=== PATIENT | male | born 1985 | race Caucasian/White ===

== ENCOUNTER 2021-07-23 09:26 | Outpatient (CLI) | payer OTHER, SELFPAY ==
[2021-07-23 09:41] LABS: Basophils Absolute Auto 0.1 K/mm3 (0.0-0.1); Basophils Percent Auto 0.9 % (0.2-1.2); Eosinophils Absolute Auto 0.4 K/mm3 (0-0.3); Eosinophils Percent Auto 4.9 % (0-4.4); Hematocrit 47.8 % (42.0-52.0); Hemoglobin 15.4 g/dL (14.0-18.0); Immature Granulocyte Absolute 0.02 K/mm3 (0.00-0.031); Immature Granulocyte Percent A 0.3 % (0-0.5); Lymphocytes Absolute Auto 1.78 K/mm3 (0.9-3.2); Lymphocytes Percent Auto 23.1 % (18.3-44.2); Mean Corpuscular HGB Conc 32.2 g/dl (32-36); Mean Corpuscular Hemoglobin 28.6 pg (26-34); Mean Corpuscular Volume 88.8 fl (80-100); Mean Platelet Volume 10.8 fl (7.4-10.4); Monocytes Absolute Auto 0.8 K/mm3 (0.1-0.6); Monocytes Percent Auto 10.2 % (2.6-8.5); Neutrophils Absolute Auto 4.7 K/mm3 (1.3-6.7); Neutrophils Percent Auto 60.6 % (45.5-73.1); Platelet Count Result 269 k/mm3 (150-375); Red Blood Count 5.38 M/mm3 (4.6-6.20); Red Cell Distribution Width 13.2 % (11.5-14.5); White Blood Count 7.7 K/mm3 (4.5-10.0)
[2021-07-23 09:59] LABS: Alanine Aminotransferase 97 U/L (4-50); Albumin Level 4.6 g/dL (3.5-5.1); Alkaline Phosphatase 91 U/L (38-126); Anion Gap 9 mmol/L (8-16); Aspartate Amino Transferase 43 U/L (17-59); Bilirubin,Total 0.4 mg/dL (0.2-1.3); Blood Urea Nitrogen 11 mg/dL (9-20); Calcium 9.4 mg/dL (8.4-10.2); Carbon Dioxide 30 mmol/L (22-30); Chloride 96 mmol/L (98-107); Cholesterol 220 mg/dL (0-200); Estimated Glomerular Filt Rate > 60; Glucose 136 mg/dL (65-110); HDL Direct 35 mg/dL; Potassium 3.7 mmol/L (3.4-5.0); Sodium 135 mmol/L (137-145); Triglycerides 126 mg/dL (<150)
[2021-07-23 10:10] LABS: LDL Cholesterol Direct 141 mg/dL
[2021-07-23 12:25] LABS: Hemoglobin A1C 7.4 % (<5.7)
== END 2021-07-23 09:27 | disposition home or self-care (01) ==
PROVIDERS: PCP Family Medicine; Visit Provider Physician Assistant
DX: I10 Essential (primary) hypertension (principal); R73.01 Impaired fasting glucose; Z13.220 Encounter for screening for lipoid disorders
CPT/HCPCS: 36415; 80053; 80061; 83036; 84443; 85025

== ENCOUNTER 2021-08-20 13:32 | Outpatient (CLI) | payer OTHER, SELFPAY ==
[2021-08-20 14:09] LABS: Alanine Aminotransferase 94 U/L (4-50); Aspartate Amino Transferase 48 U/L (17-59)
== END 2021-08-20 13:33 | disposition home or self-care (01) ==
LOC: ANHLAB 13:36
PROVIDERS: PCP Family Medicine; Visit Provider Physician Assistant
DX: R74.8 Abnormal levels of other serum enzymes (principal)
CPT/HCPCS: 36415; 84450; 84460

== ENCOUNTER 2021-09-12 10:57 | Outpatient (CLI) | payer OTHER, SELFPAY ==
--- NOTE | ~2021-09-12 | US_ITS ---
US right upper quadrant INDICATION: Abnormal lab tests. PROCEDURE: Realtime right upper abdominal ultrasound. COMPARISON: No prior studies for comparison. FINDINGS: The pancreas is normal without focal mass or pancreatic ductal dilation. Liver echotexture is increased, consistent with fatty infiltration. There is normal directional flow in the portal ve in. There is a gallstone. No gallbladder wall thickening or pericholecystic fluid. Common bile duct radha ures 3.5 mm. No sonographic Drake's sign. IMPRESSION: 1: Cholelithiasis. 2: Hepatic steatosis. Reviewed, dictated and finalized at location B.
== END 2021-09-12 10:58 | disposition home or self-care (01) ==
PROVIDERS: PCP Family Medicine; Visit Provider Physician Assistant
DX: R74.8 Abnormal levels of other serum enzymes (principal); K80.20 Calculus of gallbladder without cholecystitis without obstruction; K76.0 Fatty (change of) liver, not elsewhere classified
CPT/HCPCS: 76705

== ENCOUNTER → 2021-11-16 00:55 | Outpatient (CLI) | payer OTHER, SELFPAY ==
[2021-11-16 19:18] LABS: SARS-CoV-2 RNA PCR Negative
== END ==
PROVIDERS: Nurse Practitioner Gerontology; PCP Family Medicine; Visit Provider Family Medicine
DX: Z20.822 Contact with and (suspected) exposure to COVID-19 (principal)
CPT/HCPCS: C9803; U0003; U0005

== ENCOUNTER 2022-03-06 08:42 | Outpatient (CLI) | payer OTHER, SELFPAY ==
[2022-03-06 09:05] LABS: Basophils Absolute Auto 0.1 K/mm3 (0.0-0.1); Basophils Percent Auto 0.9 % (0.2-1.2); Eosinophils Absolute Auto 0.4 K/mm3 (0-0.3); Eosinophils Percent Auto 5.9 % (0-4.4); Hematocrit 46.7 % (42.0-52.0); Immature Granulocyte Absolute 0.02 K/mm3 (0.00-0.031); Immature Granulocyte Percent A 0.3 % (0-0.5); Lymphocytes Absolute Auto 1.95 K/mm3 (0.9-3.2); Lymphocytes Percent Auto 26.1 % (18.3-44.2); Mean Corpuscular HGB Conc 32.1 g/dl (32-36); Mean Corpuscular Hemoglobin 29.4 pg (26-34); Mean Corpuscular Volume 91.6 fl (80-100); Mean Platelet Volume 10.8 fl (7.4-10.4); Monocytes Absolute Auto 0.7 K/mm3 (0.1-0.6); Monocytes Percent Auto 8.8 % (2.6-8.5); Neutrophils Absolute Auto 4.3 K/mm3 (1.3-6.7); Platelet Count Result 293 k/mm3 (150-375); Red Cell Distribution Width 12.5 % (11.5-14.5); White Blood Count 7.5 K/mm3 (4.5-10.0)
[2022-03-06 09:13] LABS: Alanine Aminotransferase 104 U/L (4-50); Albumin Level 4.5 g/dL (3.5-5.1); Alkaline Phosphatase 82 U/L (38-126); Anion Gap 6 mmol/L (8-16); Aspartate Amino Transferase 50 U/L (17-59); Bilirubin,Total 0.6 mg/dL (0.2-1.3); Blood Urea Nitrogen 16 mg/dL (9-20); Calcium 8.9 mg/dL (8.4-10.2); Carbon Dioxide 33 mmol/L (22-30); Chloride 99 mmol/L (98-107); Cholesterol 201 mg/dL (0-200); Estimated Glomerular Filt Rate > 60; Glucose 92 mg/dL (65-110); HDL Direct 34 mg/dL; Potassium 3.7 mmol/L (3.4-5.0); Sodium 138 mmol/L (137-145); Triglycerides 139 mg/dL (<150)
[2022-03-06 09:24] LABS: LDL Cholesterol Direct 112 mg/dL
[2022-03-06 10:14] LABS: Hemoglobin A1C 5.1 % (<5.7)
== END 2022-03-06 08:43 | disposition home or self-care (01) ==
LOC: ANHLAB 08:43
PROVIDERS: PCP Family Medicine; Visit Provider Nurse Practitioner Gerontology
DX: E11.9 Type 2 diabetes mellitus without complications (principal); E78.2 Mixed hyperlipidemia; I10 Essential (primary) hypertension
CPT/HCPCS: 36415; 80053; 80061; 83036; 85025

== ENCOUNTER 2022-06-18 07:46 | Outpatient (CLI) | payer OTHER, SELFPAY ==
[2022-06-18 07:57] LABS: Basophils Absolute Auto 0.1 K/mm3 (0.0-0.1); Basophils Percent Auto 0.8 % (0.2-1.2); Eosinophils Absolute Auto 0.4 K/mm3 (0-0.3); Eosinophils Percent Auto 6.1 % (0-4.4); Hematocrit 45.2 % (42.0-52.0); Hemoglobin 14.6 g/dL (14.0-18.0); Immature Granulocyte Absolute 0.01 K/mm3 (0.00-0.031); Immature Granulocyte Percent A 0.1 % (0-0.5); Lymphocytes Absolute Auto 1.86 K/mm3 (0.9-3.2); Lymphocytes Percent Auto 25.7 % (18.3-44.2); Mean Corpuscular HGB Conc 32.3 g/dl (32-36); Mean Corpuscular Hemoglobin 29.4 pg (26-34); Mean Corpuscular Volume 90.9 fl (80-100); Mean Platelet Volume 10.3 fl (7.4-10.4); Monocytes Absolute Auto 0.6 K/mm3 (0.1-0.6); Monocytes Percent Auto 8.8 % (2.6-8.5); Neutrophils Absolute Auto 4.2 K/mm3 (1.3-6.7); Neutrophils Percent Auto 58.5 % (45.5-73.1); Platelet Count Result 243 k/mm3 (150-375); Red Blood Count 4.97 M/mm3 (4.6-6.20); Red Cell Distribution Width 13.2 % (11.5-14.5); White Blood Count 7.3 K/mm3 (4.5-10.0)
[2022-06-18 08:09] LABS: Alanine Aminotransferase 80 U/L (6-50); Albumin Level 4.4 g/dL (3.5-5.1); Alkaline Phosphatase 62 U/L (38-126); Anion Gap 9 mmol/L (8-16); Aspartate Amino Transferase 38 U/L (17-59); Bilirubin,Total 0.5 mg/dL (0.2-1.3); Blood Urea Nitrogen 15 mg/dL (9-20); Calcium 8.9 mg/dL (8.4-10.2); Carbon Dioxide 31 mmol/L (22-30); Chloride 100 mmol/L (98-107); Cholesterol 223 mg/dL (0-200); Estimated Glomerular Filt Rate > 60; Glucose 96 mg/dL (65-110); HDL Direct 43 mg/dL; Potassium 3.7 mmol/L (3.4-5.0); Sodium 140 mmol/L (137-145); Triglycerides 176 mg/dL (<150)
[2022-06-18 08:11] LABS: Hemoglobin A1C 5.3 % (<5.7)
[2022-06-18 08:20] LABS: LDL Cholesterol Direct 120 mg/dL
[2022-06-18 08:51] LABS: Free T4 Free Thyroxine 0.86 ng/mL (0.78-2.19)
[2022-06-22 15:56] LABS: Testosterone Free 97.4 pg/mL (35.0-155.0); Testosterone Total 563 ng/dL (250-1100)
== END 2022-06-18 07:47 | disposition home or self-care (01) ==
LOC: ANHLAB 07:47
PROVIDERS: PCP Family Medicine; Visit Provider Family Medicine
DX: E78.2 Mixed hyperlipidemia (principal); E11.9 Type 2 diabetes mellitus without complications; Z68.42 Body mass index [BMI] 45.0-49.9, adult; E66.01 Morbid (severe) obesity due to excess calories; E03.9 Hypothyroidism, unspecified; I10 Essential (primary) hypertension
CPT/HCPCS: 36415; 80053; 80061; 83036; 84402; 84403; 84439; 84443; 85025

== ENCOUNTER 2022-12-11 09:25 | Emergency (ER) | payer BC, SELFPAY ==
[2022-12-11] VITALS (10 sets, daily range): BP systolic 119–163; BP diastolic 75–113; PULSE 70–81; RESP 14–20; TEMP 36.3; O2SAT 96–98
--- NOTE | 2022-12-11 10:37 | ECG_ITS ---
Measurements Intervals [place] Rate: 69 P: 30 [place]: 201 QRS: -13 QRSD: 98 T: 19 QT: 395 QTc: 425 Interpretive Statements SINUS RHYTHM LOW QRS VOLTAGE IN PRECORDIAL LEADS CONSIDER INFERIOR INFARCT, AGE INDETERMINATE ABNORMAL ECG NO PREVIOUS ECG AVAILABLE FOR COMPARISON Electronically Signed On 12-11-2022 11:17:02 LEARNING STRATEGIST by Rodger Villagran D.O.
[2022-12-11 10:59] LABS: Basophils Absolute Auto 0.1 K/mm3 (0.0-0.1); Basophils Percent Auto 0.8 % (0.2-1.2); Eosinophils Absolute Auto 0.3 K/mm3 (0-0.3); Eosinophils Percent Auto 4.4 % (0-4.4); Hemoglobin 15.4 g/dL (14.0-18.0); Immature Granulocyte Absolute 0.02 K/mm3 (0.00-0.031); Immature Granulocyte Percent A 0.3 % (0-0.5); Lymphocytes Absolute Auto 1.29 K/mm3 (0.9-3.2); Lymphocytes Percent Auto 18.1 % (18.3-44.2); Mean Corpuscular HGB Conc 33.5 g/dl (32-36); Mean Corpuscular Hemoglobin 29.6 pg (26-34); Mean Corpuscular Volume 88.5 fl (80-100); Mean Platelet Volume 10.8 fl (7.4-10.4); Monocytes Absolute Auto 0.4 K/mm3 (0.1-0.6); Neutrophils Percent Auto 70.4 % (45.5-73.1); Platelet Count Result 258 k/mm3 (150-375); Red Cell Distribution Width 12.4 % (11.5-14.5); White Blood Count 7.1 K/mm3 (4.5-10.0)
[2022-12-11 11:08] LABS: Alanine Aminotransferase 93 U/L (6-50); Albumin Level 4.6 g/dL (3.5-5.1); Alkaline Phosphatase 67 U/L (38-126); Anion Gap 7 mmol/L (8-16); Aspartate Amino Transferase 44 U/L (17-59); Bilirubin,Total 0.5 mg/dL (0.2-1.3); Blood Urea Nitrogen 15 mg/dL (9-20); Carbon Dioxide 28 mmol/L (22-30); Chloride 100 mmol/L (98-107); Estimated CRCL calculation 173 ml/min; Estimated Glomerular Filt Rate > 60; Glucose 93 mg/dL (65-110); Potassium 3.7 mmol/L (3.4-5.0); Sodium 135 mmol/L (137-145)
[2022-12-11 11:09] LABS: Appearance Urine Clear (Clear); Bilirubin Urine Negative (Negative); Blood Urine Negative (Negative); Color Urine Yellow (Yellow); Glucose Urine UA Negative (Negative); Ketones Urine Negative (Negative); Leukocyte Esterase Ur Negative LEU/UL (Negative); Nitrate Urine Negative (Negative); Protein Urine Negative (Negative); Specific Grav Ur 1.015 (1.001-1.035); Urobilinogen Urine 0.2 mg/dL (<2.0)
[2022-12-11 11:18] LABS: Troponin I < 0.012 ng/mL (0.000-0.034)
[2022-12-11] MEDS: cloNIDine HCL 0.1 MG TABLET PO (11:21)
[2022-12-11 11:34] LABS: Add Urine Microscopic? NO
--- NOTE | 2022-12-11 13:14 | ED.GENADULT ---
HPI - General Adult General Chief complaint: Recheck/Abnormal Lab/Rx Stated complaint: High blood pressure Time Seen by Provider: 12/11/22 10:11 Source: patient Mode of arrival: ambulatory History of Present Illness HPI narrative: 36-year-old with a history of hypertension, diabetes here with complaints of not feeling well and elevated blood pressures since this morning. Patient states that he called his primary doctor who recommended him to come to the ER. Patient presently denies any headache, chest pain or shortness of breath or blurred vision. Onset (ago): day(s) (1) Severity: moderate Associated symptoms: denies other symptoms Related Data Allergies Allergy/AdvReac Type Severity Reaction Status Date / Time No Known Allergies Allergy Unverified 10/03/22 10:13 Review of Systems Review of Systems: All systems reviewed & are unremarkable except as noted in HPI and below Constitutional: Constitutional: Reports no additional constitutional complaints Eyes: Eyes: Reports no additional eye complaints ENT: Reports system reviewed and no additional complaints, except as documented Cardiovascular: Cardiovascular: Reports as per HPI and Reports no additional cardiovascular complaints Respiratory: Respiratory: Reports no additional respiratory complaints Gastrointestinal: Gastrointestinal: Reports no additional gastrointestinal complaints Musculoskeletal: Musculoskeletal: Reports no additional musculoskeletal complaints PMFSH Past Medical History Medical History Adult general medical exam Body mass index (BMI) greater than 40 (03/12/18) Borderline diabetes Dietary counseling and surveillance (07/08/17) Elevated BP without diagnosis of hypertension Essential (primary) hypertension HTN (hypertension) Mixed hyperlipidemia Mixed hyperlipidemia Prediabetes Testicular pain, right Testicular swelling, right Type 2 diabetes mellitus Surgical History Surgical History History of placement of ear tubes History of tonsillectomy and adenoidectomy Family History Family History Mother Hypertension Father No problems noted. Grandparent No problems noted. Other Malignant neoplasm of prostate paternal side Social History Social History Social History: Smoking status: Never smoker Second hand tobacco smoke exposure: No Alcohol intake: current Alcohol use details: Occasionally Substance use: never Substance use type: does not use Gender identity (if verbalized by the patient): Male Sexual Orientation (if Verbalized by the Patient): Straight or Heterosexual Exam Narrative: GENERAL: Well-appearing, well-nourished, and in no acute distress. HEAD: Normocephalic, atraumatic. NECK: Supple. CHEST: Clear to auscultation. No respiratory distress. HEART: Regular rate and rhythm. No murmur heard. Normal peripheral pulses. ABDOMEN: Soft, nontender, nondistended, normal active bowel sounds. EXTREMITIES: Normal range of motion. No edema. SKIN: Warm, dry, no rash. NEURO: No focal deficits. Alert and oriented x3. PSYCH: Normal mood and affect. Course Course Emergency Course: Patient had elevated diastolic pressure of 108 I did give 0.1 mg of clonidine his blood pressure is 151/75 and he is feeling much better. I notified him about his lab work and EKG advised him to continue his medication Vital Signs Vital signs: Vital Signs Temperature 36.3 C L 12/11/22 09:29 Pulse Rate 70 12/11/22 09:29 Respiratory Rate 15 12/11/22 09:29 Blood Pressure 163/108 H 12/11/22 09:29 Pulse Oximetry 97 12/11/22 09:29 Oxygen Delivery Room Air 12/11/22 09:29 Temperature 36.3 C L 12/11/22 09:29 Pulse Rate 72 12/11/22 12:17 Respiratory Rate 20 12/11/22 12:17 Bloo
== END 2022-12-11 13:35 | disposition home or self-care (01) ==
PROVIDERS: Emergency Provider Family Medicine; PCP Family Medicine
DX: I10 Essential (primary) hypertension (principal); E11.9 Type 2 diabetes mellitus without complications; E78.2 Mixed hyperlipidemia
CPT/HCPCS: 36415; 80053; 81003; 84484; 85025; 93005; 99284; A9270

== ENCOUNTER 2022-12-17 08:31 | Outpatient (CLI) | payer BC, SELFPAY ==
[2022-12-24 12:22] LABS: Metanephrine, Free <25 pg/mL (<=57); Normetanephrine, Free 75 pg/mL (<=148); Total, Free (MN + NMN) 75 pg/mL (<=205)
== END 2022-12-17 08:32 | disposition home or self-care (01) ==
LOC: ANHLAB 08:32
PROVIDERS: PCP Family Medicine; Visit Provider Family Medicine
DX: I16.0 Hypertensive urgency (principal)
CPT/HCPCS: 36415; 83835

== ENCOUNTER → 2022-12-17 09:49 | Outpatient (CLI) | payer BC, SELFPAY ==
--- NOTE | ~2022-12-17 | US_ITS ---
EXAMINATION: US retroperitoneal limited DATE: 12/17/2022 10:22 INDICATION: Hypertensive urgency TECHNIQUE: Multiple grayscale, color Doppler, and pulsed Doppler images of the kidneys and renal sandro nader were obtained. COMPARISON: None. FINDINGS: The aorta peak systolic velocity is 179 cm/s. The right renal artery peak systolic velocity is 115 cm /s in the proximal segment, 128 cm/s in the mid segment, and 86 cm/s in the distal segment. The left renal artery peak systolic velocity is 169 cm/s in the proximal segment, 201 cm/s in the mid segment, and 165 cm/s in the distal segment. IMPRESSION: 1. No Doppler evidence of right renal artery stenosis. 2. Elevated peak systolic velocities in the mid left renal artery consistent with a >50-60% stenosis. Reviewed, dictated and finalized at location [facility] [employer] IMPRESSION: 1. No Doppler evidence of right renal artery stenosis. 2. Elevated peak systolic velocities in the mid left renal artery consistent wi th a >50-60% stenosis.
== END ==
PROVIDERS: PCP Family Medicine; Visit Provider Family Medicine
DX: I16.0 Hypertensive urgency (principal)
CPT/HCPCS: 76775

== ENCOUNTER 2022-12-18 11:34 | Outpatient (CLI) | payer BC, SELFPAY ==
[2022-12-23 12:32] LABS: Metanephrine, Total Urine 135 mcg/g cr (94-445); Metanephrine, Urine 22 mcg/g cr (32-134); Normetanephrine, Urine 113 mcg/g cr (67-390)
[2022-12-24 16:59] LABS: Creatinine, Random Urine 137
== END 2022-12-18 11:35 | disposition home or self-care (01) ==
PROVIDERS: PCP Family Medicine; Visit Provider Family Medicine
DX: I16.0 Hypertensive urgency (principal)
CPT/HCPCS: 82570; 83835

== ENCOUNTER → 2023-04-26 11:44 | Outpatient (CLI) | payer BC, SELFPAY ==
--- NOTE | ~2023-04-26 | US_ITS ---
Limited Abdominal Sonogram: Real-time sonographic imaging of the right upper quadrant was performed. Clinical History: Abnormal serum enzymes Findings: The liver appears heterogeneous, with no evidence of mass lesion or bile duct dilatation. Main portal vein demonstrates normal direction of flow. The gallbladder is well distended, and contai ns echogenic shadowing gallstone at the gallbladder neck. No gallbladder wall thickening. The common bile duct measures 4 mm. The pancreas, aorta, and IVC are obscured by bowel gas shadowing. Impression: Cholelithiasis. Suspected fatty infiltration of liver. Reviewed, dictated and finalized at location . Impression: Cholelithiasis. Suspected fatty infiltration of liver.
== END ==
PROVIDERS: PCP Family Medicine; Visit Provider Family Medicine
DX: R74.8 Abnormal levels of other serum enzymes (principal); K80.20 Calculus of gallbladder without cholecystitis without obstruction
CPT/HCPCS: 76705

== ENCOUNTER 2024-01-01 16:08 | Outpatient (CLI) | payer BC, SELFPAY ==
[2024-01-01 16:36] LABS: Basophils Absolute Auto 0.1 K/mm3 (0.0-0.1); Basophils Percent Auto 0.7 % (0.2-1.2); Eosinophils Absolute Auto 0.5 K/mm3 (0-0.3); Eosinophils Percent Auto 7.2 % (0-4.4); Hematocrit 46.2 % (42.0-52.0); Hemoglobin 15.1 g/dL (14.0-18.0); Immature Granulocyte Absolute 0.02 K/mm3 (0.00-0.031); Immature Granulocyte Percent A 0.3 % (0-0.5); Lymphocytes Absolute Auto 1.65 K/mm3 (0.9-3.2); Lymphocytes Percent Auto 23.2 % (18.3-44.2); Mean Corpuscular HGB Conc 32.7 g/dl (32-36); Mean Corpuscular Hemoglobin 29.7 pg (26-34); Mean Corpuscular Volume 90.8 fl (80-100); Mean Platelet Volume 10.6 fl (7.4-10.4); Monocytes Absolute Auto 0.7 K/mm3 (0.1-0.6); Monocytes Percent Auto 10.1 % (2.6-8.5); Neutrophils Absolute Auto 4.2 K/mm3 (1.3-6.7); Neutrophils Percent Auto 58.5 % (45.5-73.1); Platelet Count Result 234 k/mm3 (150-375); Red Blood Count 5.09 M/mm3 (4.6-6.20); Red Cell Distribution Width 12.6 % (11.5-14.5); White Blood Count 7.1 K/mm3 (4.5-10.0)
[2024-01-01 16:47] LABS: Alanine Aminotransferase 116 U/L (6-50); Albumin Level 4.2 g/dL (3.5-5.1); Alkaline Phosphatase 74 U/L (38-126); Anion Gap 6 mmol/L (8-16); Aspartate Amino Transferase 54 U/L (17-59); Bilirubin,Total 0.4 mg/dL (0.2-1.3); Blood Urea Nitrogen 15 mg/dL (9-20); Calcium 9.4 mg/dL (8.4-10.2); Carbon Dioxide 27 mmol/L (22-30); Chloride 104 mmol/L (98-107); Estimated Glomerular Filt Rate > 60; Glucose 129 mg/dL (65-110); Potassium 3.8 mmol/L (3.4-5.0); Sodium 137 mmol/L (137-145)
== END 2024-01-01 16:09 | disposition home or self-care (01) ==
LOC: ANHLAB 16:13
PROVIDERS: PCP Family Medicine; Visit Provider Nurse Practitioner Family
DX: K76.0 Fatty (change of) liver, not elsewhere classified (principal)
CPT/HCPCS: 36415; 80053; 85025

== ENCOUNTER 2025-08-28 09:50 | Emergency (ER) | payer BC, SELFPAY ==
[2025-08-28 09:58] VITALS: BP 139/88; PULSE 87; RESP 16; TEMP 37.8; O2SAT 98
--- NOTE | 2025-08-28 10:06 | ED_ITS ---
HPI - Male Genitourinary General Chief complaint: Urogenital-Male Stated complaint: Left testicle swollen patient presents to the [facility] with complaints of left-sided testicular pain, swelling, redness that began last night. Patient noted he has had several episodes of epididymitis and this feels exactly like those previous episodes. Patient reports he has seen a urologist in the past and has had multiple ultrasounds and testing. Patient noted recent upper respiratory illness that everyone in his family had and usually after some kind of illness he will get an episode of epididymitis. No medication remedies attempted yet for symptoms. Patient knows he needs to get on an antibiotic for relief. Denies known fever, chills, body aches, abdominal pain, nausea, vomiting, diarrhea or difficulty urinating Related Data Allergies Allergy/AdvReac Type Severity Reaction Status Date / Time No Known Allergies Allergy Verified 08/28/25 10:04 Review of Systems Constitutional: Constitutional: Reports as per HPI, Denies chills, Denies fatigue, Denies fever(s) and Denies weakness Eyes: Eyes: Reports no additional eye complaints Cardiovascular: Cardiovascular: Reports no additional cardiovascular complaints Respiratory: Respiratory: Reports no additional respiratory complaints Gastrointestinal: Gastrointestinal: Reports as per HPI, Denies abdominal pain, Denies bloating, Denies constipation, Denies heartburn, Denies diarrhea, Denies nausea and Denies vomiting Genitourinary: Genitourinary: Reports as per HPI, Denies hematuria, Denies oliguria, Denies genital lesions, Denies dysuria, Denies penile discharge, Reports testicular pain, Denies urinary frequency and Denies urinary inconti nence Comments: testicular swelling left-sided Musculoskeletal: Musculoskeletal: Reports as per HPI, Denies back pain and Denies myalgias Integumentary/Breasts: Skin/Breast: Reports as per HPI, Reports erythema and Denies rash Neurologic: Reports as per HPI, Denies headache(s), Denies numbness and Denies weakness Psychiatric: Psychiatric: Reports no additional psychiatric complaints Endocrine: Endocrine: Reports no additional endocrine complaints Hematologic/Lymphatic: Hematologic/Lymphatic: Reports no additional hematologic/lymphatic complaints Allergic/Immunologic: Allergic/Immunologic: Reports no additional allergic/immunologic complaints PMFSH Past Medical History Medical History Elevated antinuclear antibody (HYUN) level Renal artery stenosis Mixed hyperlipidemia Testicular swelling, right Testicular pain, right Essential (primary) hypertension Elevated BP without diagnosis of hypertension Dietary counseling and surveillance (07/08/17) Borderline diabetes Body mass index (BMI) greater than 40 (03/12/18) Adult general medical exam Hypertensive urgency Elevated glucose Adult BMI 40.0-44.9 kg/sq m Fatty liver Mixed hyperlipidemia Epistaxis, recurrent Prediabetes HTN (hypertension) Surgical History Surgical History History of tonsillectomy and adenoidectomy History of placement of ear tubes Family History Family History Mother Hypertension Father No problems noted. Grandparent No problems noted. Other Malignant neoplasm of prostate paternal side Social History Social History Social History: Smoking status: Never smoker Second hand tobacco smoke exposure: No Alcohol intake: current Alcohol use details: Occasionally Substance use: never Substance use type: does not use Lack of Transportation: No Lack of Food: Never True Current Housing: I Have Housing Concerned About Future Housing: No Difficulty Paying Gas/Electric Bills: No Difficulty Paying for Meds: No Currently Unemployed: No Education: Decline to Answer Difficulty w/ Childcare or Family Care: No Living arrangements: with family Occupation/Education: occupation Gender identity (if verbalized by the patient): Male Sexual Orientation (if Verbalized by the Patient): Straight or Heterosexual Exam Const: General: healthy appearing and no acute distress Nutritional Appearance: well nourished Limitations: no limitations Resp: Effort & Inspection: normal respiratory effort Auscultation: clear to auscultation bilaterally Cardio: Rate: regular rate Rhythm: regular rhythm GI: Inspection: non-distended GI Palp: Yes Soft to palpation, No Tenderness to palpation present (GI), No Guarding due to palpation present (GI), No Rigid due to palpation and No Rebound tenderness present Auscultation: normal bowel sounds : General: Yes bladder normal to palpation and Yes no CVA tenderness Penis: Yes normal penis Scrotum: scrotal swelling (worse on the left ) bilateral Testes: epididymal tenderness on the left, testicular swelling (left great than right ) bilateral and testicular tenderness on the left Other: 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 Back/Spine/Pelvis: Back: no CVA tenderness Skin: General skin exam: normal color Rashes: no rashes Wounds: no wounds Neuro: General: patient oriented x3 Speech: normal speech Gait exam (Neuro): Normal gait present Psych: Mental Status: mental status grossly normal Affect: normal affect Attitude: cooperative Course Course Level of Care: Express Care Visit Vital Signs Vital signs: Vital Signs Temperature 100.0 F H 08/28/25 09:58 Pulse Rate 87 08/28/25 09:58 Respiratory Rate 16 08/28/25 09:58 Blood Pressure 139/88 08/28/25 09:58 Pulse Oximetry 98 08/28/25 09:58 Oxygen Delivery Room Air 08/28/25 09:58 Temperature 100.0 F H 08/28/25 09:58 Pulse Rate 87 08/28/25 09:58 Respiratory Rate 16 08/28/25 09:58 Blood Pressure 139/88 08/28/25 09:58 Pulse Oximetry 98 08/28/25 09:58 Oxygen Delivery Room Air 08/28/25 09:58 MDM - Male Genitourinary MDM Narrative Medical decision making narrative: Patient sees urology. Has had several ultrasounds and been diagnosed with this multiple times. Patient reports needing antibiotics unsure of which 1 he took last time that this worked very well. Educated patient on several signs and symptoms if they should arise or worsen to go to the emergency room for ultrasound The patient was evaluated by myself in the [facility] care. History is obtained from patient who is an independent historian and physical exam was performed. Available medical records were reviewed at this time. Exam findings show no acute concerns or changes; patient is non-toxic appearing and is in no distress. Patient is appropriate for outpatient treatment and follow-up. I have evaluated and discussed social determinants of health with the patient that could potentially impact subsequent diagnosis and treatment plans. Differential diagnosis and treatment plan were discussed with the patient. Patient agrees with discussion and after shared medical decision making agrees with plan of care. All questions were answered to the patient's satisfaction. Differential Diagnosis Differential diagnosis: Likely urinary tract infection, urethritis, epididymitis, prostatitis and inguinal hernia Medical Records Attestation: I reviewed the patient's medical records. Discharge Plan Discharge Clinical Impression: Epididymitis Patient Disposition: Home Condition: Stable Instructions: Antibiotic Form, Epididymo-Orchitis (ED) Additional Instructions: take antibiotics until gone, follow up with urology may use warm compresses or warm soaks to help with pain may also use a scrotal support to with pain ibuprofen consistently to help with pain and inflammation if you began to notice increased pain, decreased urination, back pain, fevers that do not reduce or increased swelling go to the emergency room for evaluation Patient Language: Slovak Prescriptions: New doxycycline monohydrate 100 mg capsule 100 mg PO BID Qty: 20 0RF No Action triamcinolone acetonide 0.1 % cream 1 applic topical BID Qty: 30 0RF nifedipine 60 mg tablet extended release 60 mg PO DAILY Qty: 90 1RF irbesartan 300 mg tablet 300 mg PO DAILY Qty: 90 1RF hydrochlorothiazide 25 mg tablet 25 mg PO DAILY Qty: 90 1RF metoprolol succinate 100 mg tablet extended release 24 hr See Rx Instructions .ROUTE .COMPLEX Qty: 90 0RF Dose Instruction: TAKE 1 TABLET BY MOUTH DAILY Rx Instructions: TAKE 1 TABLET BY MOUTH DAILY fluticasone propionate 50 mcg/actuation spray,suspension 1 spray intranasal Q12H Qty: 48 0RF Rx Instructions: administer into each nostril Follow-up/Referrals: Odin Flowers MD [Primary Care Provider, Family Practice] Time of Disposition: 10:09
== END 2025-08-28 10:14 | disposition home or self-care (01) ==
PROVIDERS: Emergency Provider Nurse Practitioner Family; PCP Family Medicine
DX: N45.1 Epididymitis (principal); I10 Essential (primary) hypertension; E78.2 Mixed hyperlipidemia; K76.0 Fatty (change of) liver, not elsewhere classified; R73.03 Prediabetes
CPT/HCPCS: 99213; G0463